=== PATIENT | male | born 1980 | race Caucasian/White ===

== ENCOUNTER 2020-03-03 16:33 | Inpatient (IN) | payer OTHER ==
[~2020-03-03 16:33] MED LIST: AUGMENTIN 875-1 EACH PO; MOTRIN600 MG PO
[2020-03-03 18:14] LABS: BASOPHIL 0.4 % (0-2); EOSINOPHIL 2.7 % (0-5); HCT 42.6 % (42.0-52.0); HGB 13.7 g/dl (13.2-18.0); LYMPHOCYTE 18.7 % (15-48); MCH 28.1 pg (25.0-31.0); MCHC 32.2 g/dL (32.0-36.0); MCV 87.3 fL (78.0-100.0); MONOCYTE 6.6 % (0-12); MPV 8.8 fL (6.0-9.5); NEUTROPHIL 71.2 % (41-80); NRBC 0; PLT 336 K/uL (150-400); RBC 4.88 M/uL (4.70-6.00); WBC 9.6 K/uL (4.0-10.5)
[2020-03-03 18:26] LABS: ALBUMIN 3.3 g/dL (3.4-5.0); BILIRUBIN - TOTAL 0.2 mg/dL (0.2-1.0); BUN/CREAT RATIO (CALC) 19.8 RATIO; CREATININE 0.96 mg/dL (0.67-1.17); GLOBULIN (CALCULATION) 4.8 g/dL; POTASSIUM 3.9 mmol/L (3.5-5.1); TOTAL PROTEIN 8.1 g/dL (6.4-8.2)
[2020-03-04] MEDS ORDERED: DOXYCYCLINE HY100 MG PO (02:24)
[2020-03-04 06:23] LABS: BASOPHIL 0.5 % (0-2); EOSINOPHIL 3.9 % (0-5); HCT 41.7 % (42.0-52.0); HGB 13.1 g/dl (13.2-18.0); MCH 27.7 pg (25.0-31.0); MCHC 31.4 g/dL (32.0-36.0); MCV 88.2 fL (78.0-100.0); MONOCYTE 9.1 % (0-12); MPV 8.4 fL (6.0-9.5); NEUTROPHIL 59.2 % (41-80); PLT 280 K/uL (150-400); RBC 4.73 M/uL (4.70-6.00); RDW 13.1 % (11.5-14.0); WBC 8.8 K/uL (4.0-10.5)
[2020-03-04 06:37] LABS: BUN/CREAT RATIO (CALC) 18.8 RATIO; CREATININE 0.96 mg/dL (0.67-1.17); POTASSIUM 3.7 mmol/L (3.5-5.1)
--- NOTE | 2020-03-05 13:49 | NUR ---
MET WITH PT. PER REQUEST OF AZAM RUSSELL SHE HAD RECEIVED A REFERRAL THAT PT. DRANK 3-4 BEERS A DAY. PT. STATED THAT HE CONTINUES TO LIVE WITH HIS MOTHER. HE DOES WORK AND DRIVES, BUT DUE TO HIS FOOT INJURY HE HAS NOT BEEN ABLE TO WORK. PT. STATES THAT HE HAS HAD A MIDLINE FOR ABX PREVIOUSLY AND WAS ABLE TO DO IT HIMSELF. WHEN HE D/C FROM THE HOSPITAL IN JANUARY HE WAS ON PO ABX. HE IS UNSURE IF HE WILL HAVE IV ABX OR PO WHEN HE IS DISCHARGED THIS TIME. PT. STATES THAT HE IS NO LONGER DRINKING IT SLOWS DOWN THE HEALING PROCESS. HE DOES NOT CONSIDER DRINKING BEER TO BE A PROBLEM AND IS NOT INTERESTED IN STOPPING. BUT DOES NOT WANT TO DRINK AT THIS TIME SO THAT HIS FOOT WILL HEAL. PT. IS UNSURE IF HE WILL HAVE HOMEHEALTH AT THIS TIME.
[2020-03-06] MEDS ORDERED: CLEOCIN HCL300 MG PO (09:15)
--- NOTE | 2020-03-06 10:04 | NUR ---
DISCUSSED DISCHARGE INSTRUCTIONS WITH PATIENT. INFORMED PATIENT TO MONITOR BP D/T ELEVATED AND KEEP LOG TO TAKE TO PCP. MD DELVALLE NOTIFIED OF ELEVATED BP-NO NEW ORDERS. DRESING CHANGED THIS AM, EXTRA SUPPLIES GIVEN TO PATIENT. TO FOLLOW UP WITH PCP AND PODIATRY. PATIENT DECLINED FLU VACCINE. PATIENT IN STABLE CONDITION
== END 2020-03-06 10:03 | disposition home or self-care (01) | DRG 602 ==
LOC: FER 16:33 → FMS 23:22
PROVIDERS: Emergency Medicine; Nurse Practitioner; ADMIT Hospitalist
DX: L03.115 Cellulitis of right lower limb (principal); L89.893 Pressure ulcer of other site, stage 3; Z20.822 Contact with and (suspected) exposure to COVID-19; Z89.411 Acquired absence of right great toe; Z98.890 Other specified postprocedural states; Z88.1 Allergy status to other antibiotic agents
CPT/HCPCS: 36415; 73700; 80048; 80053; 85025; 86141; 87040; J1650; J3370; J7040; U0002

== ENCOUNTER 2021-10-23 13:08 | Emergency (ER) | payer OTHER ==
[~2021-10-23 13:08] MED LIST changes: +CLEOCIN HCL300 MG PO; +DOXYCYCLINE HY100 MG PO
== END 2021-10-23 18:18 | disposition home or self-care (01) ==
LOC: FER 13:08
DX: Z45.2 Encounter for adjustment and management of vascular access device (principal)
CPT/HCPCS: 99283